=== PATIENT | female | born 1955 | race Caucasian/White ===

== ENCOUNTER → 2017-01-08 | Outpatient (CLI) | payer BC, MEDICARE ==
[~2017-01-08] MED LIST: FLEXERIL10 M1 PO; NAPROSYN500 MG PO
--- NOTE | ~2017-01-08 | US5 ---
[facility] A Service of [facility] RADIOLOGY TEXT RESULTS PATIENT: VANE STEVE LOCATION: [facility] : 59 UNIT #: [id number] AGE: [address]: TONG HELLER SEX: F ORDER DR: [id number] [facility] [address] [place], [place] [address] [id number] O MR#: [id number] #: [id number] NAME: VANE STEVE : 1955 SEX: F STUDY DATE/TIME: 01/08/2017 8:50 UNIT: CGUS ROOM: STUDY DESCRIPTION: US Abdominal Complete Attending Physician: Tong Heller Aprn Referring Physician: Tong Heller Aprn Ordering Physician: Physician Non-Staff Primary Care Physician: Barron Villarreal M.D. MEDICAL IMAGING REPORT This report is preliminary unless electronic signature is present EXAM Abdominal ultrasound complete, 01/08/2017 HISTORY Hepatitis C. Followup observation for cirrhosis and hepatocellular carcinoma. FINDINGS The liver demonstrates a coarsened echotexture and service nodularity characteristic of cirrhosis. No cystic or solid mass lesions were seen in the liver. The intra and extrahepatic bile ducts are not dilated. The gallbladder contains multiple shadowing gallstones, but there is no evidence of gallbladder wall thickening or pericholecystic fluid. The common duct measures 4 mm. The pancreas and spleen are normal. The spleen measures 10.5 cm in greatest diameter. The visualized portions of the abdominal aorta and inferior vena cava within normal limits. The kidneys are normal bilaterally. IMPRESSION 1. Coarsened liver echotexture and surface nodularity characteristic of cirrhosis. No cystic or solid mass lesions were seen within the liver. 2. Cholelithiasis. Dictated by... Hong Chavez M.D. THIS IS AN ELECTRONICALLY VERIFIED REPORT Hong Chavez M.D. at 01/08/2017 5:04 PM ARISTEO/ea [facility] A Service of [facility] RADIOLOGY TEXT RESULTS PATIENT: VANE STEVE LOCATION: [facility] : 59 UNIT #: [id number] AGE: [address]: TONG HELLER SEX: F ORDER DR: TD: 01/08/2017 14:50 JOB #: [id number] MEDICAL IMAGING REPORT Page 1 of 1 COPY
== END | disposition home or self-care (01) ==
LOC: CGUS 08:33
DX: B18.2 Chronic viral hepatitis C (principal); K76.89 Other specified diseases of liver; K80.20 Calculus of gallbladder without cholecystitis without obstruction
CPT/HCPCS: 76700